=== PATIENT | male | born 1985 | race Caucasian/White ===

== ENCOUNTER 2020-09-29 17:19 | Emergency (ER) | payer OTHER, MEDICAID, SELFPAY ==
[2020-09-29 17:41] VITALS: BP 138/96; PULSE 86; RESP 14; TEMP 36.4; O2SAT 99
--- NOTE | 2020-09-29 17:44 | DI.RAD.S_ITS ---
PROCEDURE: XR ACUTE ABDOMEN SERIES INDICATIONS: c/o constipation TECHNIQUE: One view chest and two views of the abdomen were acquired. COMPARISON: None. FINDINGS: Surgical changes and devices: None. Chest: Lungs are clear. Heart size is normal. No pleural effusions. No pneumoperitoneum. Abdomen: Bowel gas pattern is normal. No suspicious calcifications. Visualized solid organ contours appear normal. Moderate fecal debris noted in the right colon and rectum Bones: No suspicious bony lesions. IMPRESSION: Moderate fecal debris in the right colon and rectum. No obstruction. Dictated by: Jeremías Coleman M.D. on 09/29/2020 at 17:42 Approved by: Jeremías Coleman M.D. on 09/29/2020 at 17:48
== END 2020-09-29 21:41 | disposition left against medical advice (07) ==
PROVIDERS: Emergency Provider Emergency Medicine
DX: K59.00 Constipation, unspecified (principal)
CPT/HCPCS: 74022; 99281

== ENCOUNTER 2023-12-22 13:03 | Emergency (ER) | payer OTHER, MEDICAID, SELFPAY ==
[2023-12-22 13:09] VITALS: BP 132/72; PULSE 73; RESP 16; TEMP 37.2; O2SAT 96; BMI 29.8
--- NOTE | 2023-12-22 13:44 | PC.NURSE ---
Patient reports having a fever and cough for several days, decided to come to the department today because he is just not feeling better. Patient can tolerate food and fluids. Patient afebrile in triage and vitals signs stable at this time
[2023-12-22 13:54] LABS: Influenza A - CEPHEID Flu A NEGATIVE (NEGATIVE); Influenza B - CEPHEID Flu B NEGATIVE (NEGATIVE); Respiratory Syncytial Virus Negative (Negative)
[2023-12-22 13:55] LABS: COVID-19 CEPHEID 4-PLEX PCR Negative (Negative)
--- NOTE | 2023-12-22 14:03 | ED_ITS ---
HPI - URI/Sore Throat General Chief Complaint: Upper Respiratory Symptoms Stated Complaint: Fever, Cough Time Seen by Provider: 12/22/23 14:02 Source: patient Mode of arrival: Ambulatory Limitations: no limitations History of Present Illness HPI Narrative: 38-year-old male history of chronic tobacco use who presents with complaint of fevers up to 100 F, cough body aches for the past 3 days. Patient states has no t had any improvement. States little bit of nasal drainage, denies sore throat, denies any chest pain, denies any shortness of breath. States he has had a cough he has had clear yellow greenish productive sputum intermittently. Denies any nausea or vomiting. No diarrhea or constipation. No swelling of extremities. No rash. Patient states no daily medications. No prior history of asthma or requiring inhalers. States no daily prescription medications Denies any drug allergies. Does smoke daily, denies regular alcohol, denies any recreational drugs. Notes multiple sick contacts at work. Related Data Home Medications Medication Instructions Recorded Confirmed buprenorphine HCl 8 mg sublingual 8 mg sublingual TID ##0 11/21/15 tablet clonazepam 0.5 mg tablet 1 mg PO BID ##0 11/21/15 clonazepam 0.5 mg tablet 2 mg PO BID ##0 11/21/15 Previous Rx's Medication Instructions Recorded clonazepam 0.5 mg tablet 0.5 mg PO Q8H PRN #5 tabs 03/27/16 azithromycin 250 mg tablet 0 PO QDAY #1 packet 04/19/16 (Zithromax) fluticasone propionate 50 0 intranasal BID ##16 04/19/16 mcg/actuation nasal spray,suspension Allergies Allergy/AdvReac Type Severity Reaction Status Date / Time No Known Drug Allergies Allergy Verified 12/22/23 13:13 Review of Systems Review of Systems ROS Unobtainable: All systems reviewed & are unremarkable except as noted in HPI and below Patient History Social History Smoking Status: Current every day smoker Smoking Status: Current every day smoker alcohol intake frequency: 0-2 drinks per day Substance Use Type: does not use Exam Narrative Exam Narrative: GEN: well nourished, well appearing male, alert and oriented x 3, patient appears to be in mild distress. HEENT: Atraumatic, pupils are equal round reactive to light, extraocular movements are intact, nares show mild bilateral rhinorrhea, TMs are clear with no fluid, there is no conjunctival pallor. Throat is clear without any exudates, erythema, tonsillar enlargement or uvular deviation, positive for some cobblestoning. HEART: Regular rate and rhythm without murmur, clicks, rubs. LUNGS:Lungs have breath sounds equal bilaterally, patient has mild expiratory wheezes throughout, no tachypnea, no accessory muscle use. Speaks full sentences without issue. No crackles, no rhonchi. No cough during evaluation. ABD:bowel sounds normal, soft, non-tender, no guarding, rebound, rigidity, no masses noted, no hepatosplenomegaly MSCL: normal gait NEURO:CN 2-12 intact, sensation normal. Initial Vital Signs Initial Vital Signs: Vital Signs Temperature 98.9 F 12/22/23 13:09 Pulse Rate 73 12/22/23 13:09 Respiratory Rate 16 12/22/23 13:09 Blood Pressure 132/72 12/22/23 13:09 Pulse Oximetry 96 12/22/23 13:09 Oxygen Delivery Method Room Air 12/22/23 13:09 Course Orders Ordered: Discontinued Medications Albuterol (Albuterol Hfa Mdi 60 Puff/8 Gm Inhaler) 2 puff INH NOW ONE Stop: 12/22/23 14:10 Last Admin: 12/22/23 14:16 Dose: Not Given Documented By: Albuterol (Albuterol Hfa Prepack) 1 box MISC DIRECTED ONE Stop: 12/22/23 14:16 Last Admin: 12/22/23 14:21 Dose: 1 box Documented By: HALLE Dexamethasone (Dexamethasone 10 Mg/Ml Vial) 10 mg PO NOW ONE Stop: 12/22/23 14:10 Last Admin: 12/22/23 14:17 Dose: 10 mg Documented By: EDGAR Vital Signs Vital signs: Vital Signs - 8 hr 12/22/23 13:09 Temperature 98.9 F Pulse Rate 73 Respiratory Rate 16 Blood Pressure 132/72 Pulse Oximetry 96 Oxygen Delivery Method Room Air MDM - URI/Sore Throat Lab Data Labs: Lab Results 12/22/23 Range/Units 13:13 SARS-CoV-2 (PCR) Negative (Negative) Influenza A (RT-PCR) Flu a negative (NEGATIVE) Influenza B (RT-PCR) Flu b negative (NEGATIVE) RSV (PCR) Negative (Negative) MDM Narrative Medical decision making narrative: 38-year-old male chronic tobacco use has what sounds like likely viral upper respiratory infection some nasal congestion as cobblestoning on exam does have some wheeze throughout but no respiratory distress. Patient is chronic tobacco user does not have a history of requiring albuterol or asthma or reactive airway . No crackles. Patient given albuterol with MDI and spacer here in the department. Also given a dose of dexamethasone for bronchitis. Patient's COVID/influenza/RSV is negative but suspect patient likely has a 1 of the alternative viral illnesses out here. Exam seems less likely for bacterial pneumonia. Patient exam most consistent with bronchitis, discussed return precautions. Discharge Plan Departure Patient Disposition: Home Clinical Impression: Bronchitis Instructions: Acute Bronchitis Activity Restrictions/Additional Instructions: You likely have a viral illness causing bronchitis or narrowing of the airways and wheezing. Viral illnesses typically last 7-10 days. Chronic tobacco use can make you more likely to have wheezing when you have an infection. You are given a dose of dexamethasone or oral steroid. Use albuterol 2-4 puffs every 4 hours as needed for wheezing, cough or shortness of breath. Please return for rapidly worsening symptoms, increasing or new chest pain or shortness of breath, lightheadedness or passing out, persistent vomiting or other new or concerning changes. Prescriptions: No Action clonazepam 0.5 MG tablet 1 mg PO BID Qty: 0 clonazepam 0.5 MG tablet 2 mg PO BID Qty: 0 buprenorphine HCl 8 MG tablet, sublingual 8 mg Sublingual TID Qty: 0 clonazepam 0.5 MG tablet 0.5 mg PO Q8H PRNQty: 5 0RF azithromycin [Zithromax] 250 MG tablet 0 PO QDAY Qty: 1 0RF fluticasone propionate 16 GM spray,suspension 0 Intranasal BID Qty: 16 0RF Stand Alone Forms: Patient Portal/API
[2023-12-22] MEDS: DEXAMETHASONE 10 MG/ML VIAL PO (14:17)
[2023-12-22] MEDS: ALBUTEROL HFA PREPACK 1 BOX MISC (14:21)
[2023-12-22 14:30] VITALS: BP 133/64; PULSE 72; RESP 20; O2SAT 98
== END 2023-12-22 14:25 | disposition home or self-care (01) ==
PROVIDERS: Emergency Provider Emergency Medicine
DX: J20.9 Acute bronchitis, unspecified (principal); Z72.0 Tobacco use; Z11.52 Encounter for screening for COVID-19
CPT/HCPCS: 0241U; 99283; A9270; J1100

== ENCOUNTER 2024-05-07 20:35 | Emergency (ER) | payer OTHER, MEDICAID, SELFPAY ==
[2024-05-07 20:44] VITALS: BP 158/83; PULSE 78; RESP 20; TEMP 38.2; O2SAT 98; BMI 30.4
[2024-05-07 21:34] LABS: Influenza A - CEPHEID Flu A NEGATIVE (NEGATIVE); Influenza B - CEPHEID Flu B NEGATIVE (NEGATIVE); Respiratory Syncytial Virus Negative (Negative)
[2024-05-07 21:35] LABS: COVID-19 CEPHEID 4-PLEX PCR Negative (Negative)
== END 2024-05-07 21:49 | disposition left against medical advice (07) ==
PROVIDERS: Emergency Provider Emergency Medicine
DX: R50.9 Fever, unspecified (principal); R53.81 Other malaise
CPT/HCPCS: 87635; 87400 ×2; 87420; 0241U; 99281

== ENCOUNTER 2025-02-05 17:24 | Emergency (ER) | payer OTHER, MEDICAID, SELFPAY ==
[2025-02-05 17:28] VITALS: BP 142/79; PULSE 87; RESP 18; TEMP 37.1; O2SAT 96; BMI 29.8
--- NOTE | 2025-02-05 17:52 | DI.RAD.S_ITS ---
PROCEDURE: XR CHEST 2V INDICATIONS: cough TECHNIQUE: 2 views of the chest were acquired. COMPARISON: [facility], CR, XR CHEST 1 VIEW, 05/15/2022, 11:43. [facility], CR, XR CHEST 2 VIEWS, 04/13/2024, 14:15. FINDINGS: Surgical changes and devices: None. Lungs and pleura: Lungs are clear. No pleural effusions or pneumothorax. Mediastinum: Mediastinal contours are normal. Heart size is normal. Bones and chest wall: No suspicious bony abnormalities. Soft tissues appear unremarkable. IMPRESSION: No acute cardiopulmonary abnormality is seen. No focal infiltrates are seen. Dictated by: Ankit Kumar M.D. on 02/05/2025 at 18:23 Approved by: Ankit Kumar M.D. on 02/05/2025 at 18:23
[2025-02-05 18:47] LABS: Influenza A - CEPHEID Flu A NEGATIVE (NEGATIVE); Influenza B - CEPHEID Flu B NEGATIVE (NEGATIVE)
[2025-02-05 18:51] LABS: COVID-19 CEPHEID 4-PLEX PCR Negative (Negative)
--- NOTE | 2025-02-05 20:28 | ED_ITS ---
HPI - URI/Sore Throat General Chief Complaint: Upper Respiratory Symptoms Stated Complaint: Sick, Respiratory sx, fever Time Seen by Provider: 02/05/25 20:28 Source: patient Mode of arrival: Ambulatory History of Present Illness HPI Narrative: 39-year-old male no pertinent past medical history comes into the ED from home for evaluation of flu-like symptoms ongoing persistent for the past 3 days, states that he has been having some cough with productive sputum therefore decided come into the ED for further evaluation treatment. He denies any actual chest pain shortness of breath does note some fever but is afebrile here, did not take any medications prior to arrival. He states he has been using Mucinex without much relief therefore came into the ED. he denies other symptoms such as chest pain nausea vomiting abdominal pain or any other GI/ symptoms at this time. Related Data Home Medications ?Medication ?Instructions ?Recorded ?Confirmed buprenorphine HCl 8 mg sublingual 8 mg sublingual TID ##0 11/21/15 tablet clonazepam 0.5 mg tablet 1 mg PO BID ##0 11/21/15 clonazepam 0.5 mg tablet 2 mg PO BID ##0 11/21/15 Previous Rx's ?Medication ?Instructions ?Recorded clonazepam 0.5 mg tablet 0.5 mg PO Q8H PRN #5 tabs azithromycin 250 mg tablet 0 PO QDAY #1 packet 7 (Zithromax) fluticasone propionate 50 0 intranasal BID ##16 mcg/actuation nasal spray,suspension methylprednisolone 4 mg tablets in See Rx Instructions PO .COMPLEX 02/05/25 a dose pack (Medrol (Nba)) #21 ea Allergies Allergy/AdvReac Type Severity Reaction Status Date / Time No Known Drug Allergies Allergy Verified 12/22/23 13:13 Review of Systems Review of Systems Narrative: General: Positive fever, denies chills, weight loss HEENT: Denies headache, eye drainage, eye irritation, head trauma, sore throat, voice change Cardiovascular: Denies any chest pain, palpitations, tachycardia Respiratory: Positive cough Denies any shortness of breath,wheeze, stridor GI/: Denies any abdominal pain, nausea, vomiting, diarrhea, bright red blood per rectum, melanotic stools, urinary frequency, urinary retention, dysuria, hematuria MSK: Denies any joint pain, muscle pains, swelling Skin: Denies any rashes, lesions, discoloration Neuro: Denies any headache, lightheadedness, dizziness, fainting, weakness Psych: Denies SI/HI Patient History Social History Smoking Status: Current some day smoker Smoking Status: Current some day smoker tobacco type: cigarettes alcohol intake frequency: 0-2 drinks per day Exam Narrative Exam Narrative: General: Cooperative, well-developed, not in acute distress HEENT: Normocephalic, atraumatic, PERRLA, normal sclera, eyelids normal Neck: Active full range of motion, atraumatic Chest: Normal to inspection, negative crepitus, no overlying erythema ecchymosis Respiratory: Coughing on exam, Normal respiratory effort, not in acute respiratory distress, clear to auscultation bilaterally negative wheeze, tachypnea, rhonchi, rales Cardiology: Regular rate rhythm negative gallop, murmur, rubs GI/: No tenderness to palpation, soft, non rigid, normal to inspection, exam deferred MSK: Full active range of motion in all 4 extremities, atraumatic, no tenderness to palpation of any bony prominences Skin: No rashes or lesions noted Neuro: Alert awake oriented x3, moves all 4 extremities spontaneously, cranial nerves intact, able to answer all questions appropriately follows commands appropriately Psych: Cooperative, negative suicidal or homicidal ideations Initial Vital Signs Initial Vital Signs: Vital Signs Temperature 98.8 F 02/05/25 17:28 Pulse Rate 87 02/05/25 17:28 Respiratory Rate 18 02/05/25 17:28 Blood Pressure 142/79 H 02/05/25 17:28 Pulse Oximetry 96 02/05/25 17:28 Oxygen Delivery Method Room Air 02/05/25 17:28 Course Orders Ordered: ED Orders 02/05/25 17:52 CXR [XR chest 2V] Stat 02/05/25 18:00 Covid-19 + FLU A/B + RSV - PCR Stat Vital Signs Vital signs: Vital Signs - 8 hr 02/05/25 17:28 Temperature 98.8 F Pulse Rate 87 Respiratory Rate 18 Blood Pressure 142/79 H Pulse Oximetry 96 Oxygen Delivery Method Room Air MDM - URI/Sore Throat Lab Data Labs: Lab Results 02/05/25 Range/Units 18:00 SARS-CoV-2 (PCR) Negative (Negative) Influenza A (RT-PCR) Flu a negative (NEGATIVE) Influenza B (RT-PCR) Flu b negative (NEGATIVE) RSV (PCR) Negative (Negative) MDM Narrative Medical decision making narrative: 39-year-old male without any significant past medical history comes into the ED from home for evaluation of flu-like symptoms ongoing persistent for the past few days, states that he has been using Mucinex without much relief, he also states he has been having fever, he did not take any medications prior to arrival patient was afebrile here he is not requiring any supplemental oxygen he was coughing on my exam but not complaining of any other symptoms. Patient had chest x-ray without any acute cardiopulmonary abnormality, did have a respiratory panel that was negative. Patient will be discharged home with symptomatic relief, he was given strict return precautions he verbalized understanding agrees to being discharged home with outpatient follow up Discharge Plan Departure Patient Disposition: Home Clinical Impression: Bronchitis Instructions: DI for Acute Bronchitis Activity Restrictions/Additional Instructions: Please follow up with your primary care doctor as needed Please read the discharge instructions sheet carefully and bring all papers to all doctor follow-up visits, as it may contain information that your doctor may want to see. Disease processes change and evolve, if your symptoms worsen or if you develop any new symptoms that are concerning to you please return for evaluation. Your evaluation today does not show any evidence of any life- threatening/serious illnesses requiring admission to the hospital or surgery. Please follow-up with your doctor for re-evaluation in approximately 1 day. Seek immediate medical attention for any worrisome symptoms. *If you do not have a primary care provider please contact the [facility] Resource line at [phone]. They will ask some questions about your medical history and help get you set up with a doctor in the community. Prescriptions: New methylprednisolone [Medrol (Nba)] 4 mg tablets,dose pack See Rx Instructions .ROUTE .COMPLEX Qty: 21 0RF Rx Instructions: for 6 days No Action clonazepam 0.5 MG tablet 1 mg PO BID Qty: 0 clonazepam 0.5 MG tablet 2 mg PO BID Qty: 0 buprenorphine HCl 8 MG tablet, sublingual 8 mg Sublingual TID Qty: 0 clonazepam 0.5 MG tablet 0.5 mg PO Q8H PRNQty: 5 0RF azithromycin [Zithromax] 250 MG tablet 0 PO QDAY Qty: 1 0RF fluticasone propionate 16 GM spray,suspension 0 Intranasal BID Qty: 16 0RF Stand Alone Forms: Patient Portal/API
[2025-02-05 20:46] VITALS: BP 140/77; PULSE 79; RESP 18; O2SAT 94
[2025-02-05] MEDS: ALBUTEROL HFA PREPACK 1 BOX MISC (20:55)
== END 2025-02-05 20:57 | disposition home or self-care (01) ==
PROVIDERS: Emergency Medicine; Emergency Provider Student in an Organized Health Care Education/Training Program
DX: J20.9 Acute bronchitis, unspecified (principal)
CPT/HCPCS: 71046; 87637; 99283